=== PATIENT | female | born 1985 ===

== ENCOUNTER 2016-10-31 13:29 | Inpatient (IN) | payer MEDICAID ==
[2016-10-31 13:42] VITALS: BMI 28.8
--- NOTE | 2016-10-31 14:04 | ED PDOC ---
Arrival/HPI - General Time Seen by Provider: 10/31/16 13:45 Historian: Patient - History of Present Illness Narrative History of Present Illness (Text): The patient is a 31yo female, past medical history of depression, bipolar disorder, presents to the Emergency department today for evaluation of panic attacks. Patient states she has not visited a psychiatrist for over a year and has not taken any medications; reports she took Abilify last year and has a "horrible reaction" after which she was afraid to take the medications. She denies any suicidal or homicidal ideation and denies any auditory or visual hallucinations. She offers no other medical complaints. Past Medical History - Provider Review Nursing Documentation Reviewed: Yes - Travel History Have you recently traveled outside [place] w/in the past 3 mons?: No - Infectious Disease Hx of Infectious Diseases: None - Psychiatric Hx Bipolar Disorder: Yes Hx Depression: Yes Hx Post Traumatic Stress Disorder: Yes Hx Substance Use: No - Suicidal Assessment Suicidal Thoughts: No Plan: No Family/Social History - Physician Review Nursing Documentation Reviewed: Yes Family/Social History: No Known Family HX Smoking Status: Former Smoker Hx Alcohol Use: (former) Hx Substance Use: No Allergies/Home Meds Allergies/Adverse Reactions: Allergies No Known Allergies Allergy (Verified 10/31/16 13:41) Home Medications: Home Meds Medication Instructions Recorded Confirmed No Known Home Med 10/31/16 10/31/16 Review of Systems - Review of Systems Constitutional: Normal Eyes: Normal ENT: Normal Respiratory: Normal Cardiovascular: Normal. absent: Chest Pain Gastrointestinal: Normal Genitourinary Female: Normal Musculoskeletal: Normal Skin: Normal Neurological: Normal Endocrine: Normal Hemo/Lymphatic: Normal Psychiatric: Anxiety, Depression. absent: Suicidal Ideation Physical Exam - Physical Exam Narrative Physical Exam (Text): Constitutional:Tearful upon exam. Head: Normocephalic. Atraumatic. Eyes: PERRL. ENT: Moist mucous membranes. Neck: Supple. Cardiovascular: Regular rate. Chest: No tenderness. Respiratory: Clear to auscultation bilaterally. GI: Soft. Nontender. Nondistended. Back: No CVA tenderness. Musculoskeletal: No tenderness or swelling of extremities. Skin: No rash. Neurologic: Alert, no focal deficit. Vital Signs Reviewed: Yes Vital Signs Temp Pulse Resp BP Pulse Ox 10/31/16 13:29 97.7 F 68 18 108/60 98 Temperature: Afebrile Blood Pressure: Normal Pulse: Regular Respiratory Rate: Normal Appearance: Positive for: Non-Toxic, Comfortable Pain Distress: None Mental Status: Positive for: Alert and Oriented X 3 Medical Decision Making ED Course and Treatment: -- Labs -- Chest X-ray 10/31/16 16:01 Chest X-ray FINDINGS: LUNGS: No active pulmonary disease. PLEURA: No significant pleural effusion identified, no pneumothorax apparent. CARDIOVASCULAR: Normal. OSSEOUS STRUCTURES: No significant abnormalities. VISUALIZED UPPER ABDOMEN: Normal. OTHER FINDINGS: None. IMPRESSION: No active disease. - Lab Interpretations Lab Results: 10/31/16 14:06 10/31/16 14:06 Lab Results 10/31/16 14:06: Alcohol, Quantitative < 10 10/31/16 14:06: Salicylates < 1 L, Acetaminophen < 10.0 L 10/31/16 14:06: Urine Opiates Screen Negative, Urine Methadone Screen Negative, Ur Barbiturates Screen Negative, Ur Phencyclidine Scrn Negative, Ur Amphetamines Screen Negative, U Benzodiazepines Scrn Negative, U Oth Cocaine Metabols Negative, U Cannabinoids Screen Negative 10/31/16 14:06: Sodium 138, Potassium 4.0, Chloride 105, Carbon Dioxide 24, Anion Gap 13, BUN 10, Creatinine 0.5, Est GFR ( Amer) > 60, Est GFR (Non- Af Amer) > 60, Random Glucose 76, Calcium 9.1, Total Bilirubin 0.3, AST 26, ALT 35, Alkaline Phosphatase 74, Total Protein 7.2, Albumin 4.2, Globulin 3.0, Albumin/Globulin Ratio 1.4 10/31/16 14:06: Urine Color Yellow, Urine Appearance Turbid, Urine pH 6.0, Ur Specific [place] >= 1.030, Urine Protein Negative, Urine Glucose (UA) Negative, Urine Ketones 40 H, Urine Blood Large H, Urine Nitrate Negative, Urine Bilirubin Negative, Urine Urobilinogen 0.2, Ur Leukocyte Esterase Trace H, Urine RBC 2 - 5, Urine WBC 0 - 2, Ur Epithelial Cells 1 - 3, Urine Bacteria Trace, Urine HCG, Qual Negative 10/31/16 14:06: WBC 8.0, RBC 4.82, Hgb 13.5, Hct 39.8, MCV 82.6, MCH 28.0, MCHC 33.9, RDW 12.8, Plt Count 270, MPV 9.0, Gran % 71.4 H, Lymph % (Auto) 21.6 L, [place] % (Auto) 6.4 H, Eos % (Auto) 0.5 L, Baso % (Auto) 0.1, Gran # 5.73, Lymph # 1.7, [place] # 0.5, Eos # 0.0, Baso # 0.01 - RAD Interpretation Radiology Orders: 10/31/16 13:46 CHEST PORTABLE [RAD] Stat - EKG Interpretation EKG Interpretation (Text): NSR Rate: [address] ST/T wave changes Interpreted by ED Physician: Yes Type: 12 lead EKG - Medication Orders Current Medication Orders: Quetiapine Fumarate (Seroquel) 50 mg PO HS PRN; Protocol PRN Reason: Insomnia - Scribe Statement The provider has reviewed the documentation as recorded by the Stuart Rocha Provider Attestation: All medical record entries made by the Stuart were at my direction and personally dictated by me. I have reviewed the chart and agree that the record accurately reflects my personal performance of the history, physical exam, medical decision making, and the department course for this patient. I have also personally directed, reviewed, and agree with the discharge instructions and disposition. Disposition/Present on Arrival - Present on Arrival Any Indicators Present on Arrival: No History of DVT/PE: No History of Uncontrolled Diabetes: No Urinary Catheter: No History of Decub. Ulcer: No History Surgical Site Infection Following: None - Disposition Have Diagnosis and Disposition been Completed?: Yes Diagnosis: Bipolar disorder Disposition: HOSPITALIZED Disposition Time: 16:00 Patient Plan: Admission Condition: FAIR
[2016-10-31 14:11] LABS: BASO # 0.01 K/mm3 (0.0-2.0); BASO % 0.1 % (0.0-3.0); EOS % 0.5 % (1.5-5.0); GRAN # 5.73 (1.4-6.5); GRAN % 71.4 % (50.0-68.0); HEMATOCRIT 39.8 % (36.0-48.0); LYMPH # 1.7 (1.2-3.4); LYMPH % 21.6 % (22.0-35.0); MEAN CELL VOLUME 82.6 fl (80.0-105.0); MEAN CORPUSCULAR HGB CONC 33.9 g/dl (31.0-37.0); MONO # 0.5 (0.1-0.6); MONO % 6.4 % (1.0-6.0); RED CELL DISTRIBUTION WIDTH 12.8 % (11.5-14.5); URINE BILIRUBIN NEGATIVE (NEGATIVE); URINE BLOOD LARGE (NEGATIVE); URINE GLUCOSE (UA) NEGATIVE (NEGATIVE); URINE KETONE 40 mg/dL (NEGATIVE); URINE LEUKOCYTE ESTERASE TRACE Leu/uL (NEGATIVE); URINE PROTEIN NEGATIVE mg/dL (<30 mg/dL); URINE UROBILINOGEN 0.2 E.U./dL (<1 E.U./dL)
[2016-10-31 14:13] LABS: URINE APPEARANCE TURBID (CLEAR); URINE COLOR YELLOW (YELLOW)
[2016-10-31 14:18] LABS: URINE BACTERIA TRACE (NEG); URINE WBC 0 - 2 /hpf (0-6)
[2016-10-31 14:20] LABS: ALB/GLOB RATIO 1.4 (1.1-1.8); ALKALINE PHOSPHATASE 74 U/L (38-126); ALT/SGPT 35 U/L (7-56); AST/SGOT 26 U/L (14-36); BILIRUBIN,TOTAL 0.3 mg/dL (0.2-1.3); BLOOD UREA NITROGEN 10 mg/dL (7-21); CALCIUM 9.1 mg/dL (8.4-10.5); CARBON DIOXIDE 24 mmol/L (21-33); CHLORIDE 105 mmol/L (98-107); GFR AFRICAN-AMERICAN > 60; GLUCOSE,RANDOM 76 mg/dL (70-110); SODIUM 138 mmol/L (132-148); TOTAL PROTEIN 7.2 g/dL (5.8-8.3)
--- NOTE | 2016-10-31 15:59 | RAD ---
HISTORY: depression COMPARISON: No prior. FINDINGS: LUNGS: No active pulmonary disease. PLEURA: No significant pleural effusion identified, no pneumothorax apparent. CARDIOVASCULAR: Normal. OSSEOUS STRUCTURES: No significant abnormalities. VISUALIZED UPPER ABDOMEN: Normal. OTHER FINDINGS: None. IMPRESSION: No active disease.
[2016-10-31] MEDS ORDERED: Magnesium Hydroxide Susp 30 ml UD PO PRN (19:14)
[2016-10-31] MEDS ORDERED: Alum-Mag Hydrox-Simethicone Susp (30 mL) PO PRN (19:14)
--- NOTE | 2016-10-31 19:56 | PCM.BM ---
<Surjit Abdul - Last Filed: 10/31/16 19:53> Treatment Plan Problems - Problems identified on initial assessmt Suicidal Ideation Date Initiated: 10/31/16 Time Initiated: 19:53 Assessment reference: NA Status: Active Priority: 1 Comment: "Its easier to go than to live" Altered Thought Process Date Initiated: 10/31/16 Time Initiated: 19:54 Assessment reference: NA Status: Active Priority: 2 Comment: racing thoughts, pressured speech, circumstancial Depression Date Initiated: 10/31/16 Time Initiated: 19:54 Assessment reference: NA Status: Active Priority: 3 Altered Sleep Pattern Date Initiated: 10/31/16 Time Initiated: 19:54 Assessment reference: NA Status: Active Priority: 4 Treatment assets and liabiliti Patient Assests: cooperative, educated, insightful, ADL independent, physically healthy, negotiates basic needs, cognitively intact, good interpersonal skills Patient Liabilities: relationship conflicts - Milieu Protocol Maintain good personal hygiene: daily Encourage regular showers Maintain personal safety: every shift Educate patient to report safety concerns to staff, every shift Monitor environment for contraband/sharps Medication safety: Monitor for expected outcome, potential side effects: every shift, Assess barriers to learning: every shift, Assess readiness for medication education: every shift Discharge/Continuing Care - Education Needs Education Needs: Patient Medication, Patient Diagnosis/Disease Process, Patient Coping Skills, Patient Placement options, Patient Community resources, Patient Aftercare Safety Plan - Discharge Discharge Criteria: Tolerates medication w/o severe side effects, Free of Suicidal thoughts, Normal sleep pattern <Maggie Wilcox - Last Filed: 11/02/16 13:26> Family Contact Family involvement: Famliy/SO not involved Family contact: Patient agrees to contact <Lizett Brown - Last Filed: 11/03/16 07:23> - Diagnosis (1) Borderline personality disorder Status: Acute Interventions: 11/03/16 07:23 Psychoeducation Psychopharmacology/adjustment of medications as needed/ monitoring possible side effects Evaluate pt on daily basis Compliance with medications and follow up appointments Suicide and homicide risk assessment and prevention, coping strategies, safety plan Relapse prevention Family involvement As outpatient: Transference-focused psychotherapy/dialectical behavioral therapy /schema therapy Mindfulness skills (2) PTSD (post-traumatic stress disorder) Status: Acute Interventions: 11/03/16 07:23 Psychoeducation Psychopharmacology/adjustment of medications as needed/ monitoring possible side effects Evaluate pt on daily basis Compliance with medications and follow up appointments Suicide and homicide risk assessment and prevention, coping strategies, safety plan Reduction of symptoms Relaxation techniques and breathing exercises Improve functional status Family involvement As outpatient: cognitive behavioral therapy (3) Bipolar disorder Status: Acute Interventions: 11/03/16 07:24 Psychoeducation Psychopharmacology/adjustment of medications as needed/ monitoring possible side effects Monitor blood level of mood stabilizers Evaluate pt on daily basis Compliance with medications and follow up appointments Suicide and homicide risk assessment and prevention, coping strategies, safety plan Relapse prevention Reduction of symptoms Improve functional status Family involvement As outpatient: cognitive behavioral therapy <Jose Forbes - Last Filed: 11/03/16 10:05> Treatment assets and liabiliti Patient Assests: cooperative, educated, motivated, ADL independent, negotiates basic needs, good interpersonal skills Patient Liabilities: poor support system, relationship conflicts - Milieu Protocol Maintain good personal hygiene: daily Encourage regular showers, daily Remind patient to perform daily oral care, daily Assist patient to perform ADL's Maintain personal safety: daily Educate patient to report safety concerns to staff, daily Monitor environment for contraband/sharps Medication safety: Monitor for expected outcome, potential side effects: daily, Assess barriers to learning: daily, Assess readiness for medication education: daily Discharge/Continuing Care - Education Needs Education Needs: Patient Medication, Patient Diagnosis/Disease Process, Patient Anger Management skills, Patient Placement options, Patient Activities of Daily Living, Patient Health Practices/Safety, Patient Personal Hygiene/Grooming, Patient Aftercare Safety Plan
--- NOTE | 2016-10-31 22:32 | CARD ---
APPROVED REPORT EKG Measurement Heart [id number] <Conclusion> Normal sinus rhythm Normal ECG
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
--- NOTE | 2016-11-01 17:20 | RAD ---
PROCEDURE: Right Index finger radiographs. HISTORY: pain COMPARISON: None. TECHNIQUE: AP radiograph of the right hand, as well as spot oblique and lateral images of index finger were obtained. FINDINGS: RIGHT INDEX FINGER: Normal right index finger, without fracture or focal lesion. Remainder of the right hand (as seen on the AP view) grossly intact. Note, a ring obscures the proximal phalanx of the right ring finger and the patient is status post prior open reduction internal fixation of distal right radial fracture. An ununited ulnar styloid fracture is appreciated as well. JOINTS: Normal. SOFT TISSUES: Normal. OTHER FINDINGS: None. IMPRESSION: Normal right index finger radiographs.
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
--- NOTE | 2016-11-02 11:34 | PN ---
SUBJECTIVE: I saw the patient this morning in her room, sitting on her bed. She has multiple thoughts that was going on. She has a urinary tract infection. We started her on some Cipro, I changed it to nitrofurantoin this morning when I realized it was Gram-negative cocci. Also, she has had this right hand pain which is little bit better today and got an x-ray which was normal. I ordered blood test for her to look at more possible reasons for the right hand pain and I believe, she will refuse the labs this morning. PHYSICAL EXAMINATION: VITAL SIGNS: 97.4 temperature, 62 pulse, 107/69 blood pressure, 17 respiratory rate, 99% O2 saturation on room air. HEENT: Head is atraumatic and normocephalic. HEART: Regular rate. LUNGS: Clear to auscultation. ABDOMEN: Soft. EXTREMITIES: No edema and she can move the right hand better today. MEDICATIONS: She is on Maalox, Macrobid now; I stopped the Cipro; milk of magnesia; Motrin; Paxil; Seroquel and Tylenol. LABORATORY DATA: Has a gram-positive cocci in the urine. X-ray of the right hand was normal. I am not sure why she has the right hand pain. I ordered a sed rate and blood test and she refused them. PLAN: We will continue with treatment and care on the patient. Was also here for depression, anxiety. We will continue to watch until it gets better. . Geoff Billingsley DO MTDD
--- NOTE | 2016-11-03 10:15 | PN ---
DATE: 11/03/2016 SUBJECTIVE: I saw her resting comfortably this morning. She slept fairly well. She is having this right arm weakness and grasp especially with the right hand. I am going to call a neurology to get their opinion. She is on Klonopin, Maalox, Macrobid, milk of magnesia, Motrin, Paxil, Seroquel and Tylenol. She has a history of depression, anxiety, right hand pain, weakness, she had it for a while and the urinary tract infection. PHYSICAL EXAMINATION VITAL SIGNS: 97.6 temp, 64 pulse, 96/52 blood pressure, 18 respiratory rate and 99% O2 on room air. HEENT: Head is atraumatic and normocephalic. HEART: Regular rate. LUNGS: Clear to auscultation. ABDOMEN: Soft. EXTREMITIES: No edema. LABORATORY DATA: Labs on the 10/31/2016, she refused all the other labs that I ordered. ASSESSMENT AND PLAN: She has been seen psychiatry. She has a right hand weakness and I call neurology in. Hopefully, she will improve. Hopefully, we will find what was going on by neurology. She also has bipolar borderline personality disorder, post-traumatic stress disorder, panic attacks, generalized anxiety disorder. Geoff Billingsley DO
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
--- NOTE | 2016-11-03 15:13 | CT ---
PROCEDURE: CT HEAD WITHOUT CONTRAST. HISTORY: right hand weakness/pain COMPARISON: None available. TECHNIQUE: Axial computed tomography images were obtained through the head/brain without intravenous contrast. Radiation dose: Total exam DLP = 725.84 mGy-cm. This CT exam was performed using one or more of the following dose reduction techniques: Automated exposure control, adjustment of the mA and/or kV according to patient size, and/or use of iterative reconstruction technique. FINDINGS: HEMORRHAGE: No intracranial hemorrhage. BRAIN: Foster-white matter differentiation is preserved. There is no mass, mass effect or abnormal extra-axial fluid collection. There is no territorial infarction. VENTRICLES: The ventricles are normal in size, shape and configuration. There is a cavum septum pellucidum. CALVARIUM: The skull base and calvarium are normal. PARANASAL SINUSES: Predominantly clear. MASTOID AIR CELLS: Predominantly clear. OTHER FINDINGS: None. IMPRESSION: No acute intracranial abnormality. If there is a persistent focal neurologic deficit and an ongoing clinical concern for acute infarction, an MRI of the brain without intravenous contrast would be a more sensitive modality for evaluation of hyperacute/acute ischemic infarction.
--- NOTE | 2016-11-03 18:18 | CP.PCM.CON ---
<Jorgito Mcgee - Last Filed: 11/03/16 19:09> History of Present Illness - History of Present Illness History of Present Illness: Neurology Consult Note for Dr. Brito Service Consulted for: R arm weakness This is a 31 yo F with PMH of Depression, Bipolar disorder, Panic attack, PTSD, and prior R wrist fracture who presented to [facility] for admission to the psych unit due to panic attacks. Neurology was consulted by Medicine consult due to right arm weakness. 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 Denies sensation of stiffness, worsening or improving with activity, or numbness/paresthesias in the digits or elsewhere in the R arm. Denies any personal or family hx of carpal tunnel, and denies any personal hx of thyroid disease. Not a diabetic. 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 Denies any tremors or spasms in the hand. All other ROS in 12-point system review negative. She previously received PT for the wrist fracture, which resolved without any further complications; finger pain onset does not coincide with either wrist fracture or with PT for wrist. PMH: as above PSH: denies FHx: Thyroid disease SHx: Admits to remote former tobacco use (tried cigarettes intermittently for 2- 3 months, then quit), admits social EtOH use, denies illicits/IVDA, currently unemployed x1 year PMD: None Had a Psychiatrist as outpatient, but reports not having been to see in > 1 year Review of Systems - Review of Systems All systems: reviewed and no additional remarkable complaints except (as per HPI ) Past Patient History - Infectious Disease Hx of Infectious Diseases: None - Past Social History Smoking Status: Former Smoker - CARDIAC Hx Cardiac Disorders: No Hx Hypertension: No - PULMONARY Hx Tuberculosis: No - NEUROLOGICAL HX Cerebrovascular Accident: No Hx Seizures: No - HEMATOLOGICAL/ONCOLOGICAL Hx Cancer: No Hx Human Immunodeficiency Virus (HIV): No - GENITOURINARY/GYNECOLOGICAL Hx Sexually Transmitted Disorders: No - PSYCHIATRIC Hx Bipolar Disorder: Yes Hx Depression: Yes Hx Post Traumatic Stress Disorder: Yes Hx Substance Use: No Meds Allergies/Adverse Reactions: Allergies Allergy/AdvReac Type Severity Reaction Status Date / Time No Known Allergies Allergy Verified 10/31/16 13:41 - Medications Medications: Current Medications Acetaminophen (Tylenol 325mg Tab) 650 mg PO Q4 PRN PRN Reason: Pain, Mild (1-3) Al Hydrox/Mg Hydrox/Simethicone (Maalox Plus 30 Ml) 30 ml PO DAILY PRN PRN Reason: Upset Stomach Clonazepam (Klonopin) 0.5 mg PO BID [facility] PRN Reason: Protocol Last Admin: 11/03/16 16:45 Dose: 0.5 mg Ibuprofen (Motrin Tab) 600 mg PO Q6H PRN PRN Reason: Pain, moderate (4-7) Magnesium Hydroxide (Milk Of Magnesia) 30 ml PO DAILY PRN PRN Reason: Constipation Nitrofurantoin Macrocrystals (Macrobid) 100 mg PO Q12 [facility] Last Admin: 11/03/16 06:34 Dose: 100 mg Paroxetine HCl (Paxil) 20 mg PO [facility] Last Admin: 11/02/16 21:03 Dose: 20 mg Quetiapine Fumarate (Seroquel) 50 mg PO [facility] PRN Reason: Protocol Last Admin: 11/02/16 21:03 Dose: 50 mg Physical Exam - Constitutional Appears: Well, Non-toxic, No Acute Distress - Head Exam Head Exam: ATRAUMATIC, NORMAL INSPECTION, NORMOCEPHALIC - Eye Exam Eye Exam: EOMI, Normal appearance. absent: Conjunctival injection, Scleral icterus Pupil Exam: absent: Irregular, Unequal - ENT Exam ENT Exam: Mucous Membranes Moist - Neck Exam Neck exam: Positive for: Full Rom - Respiratory Exam Respiratory Exam: Clear to Auscultation Bilateral, NORMAL BREATHING PATTERN. absent: Accessory Muscle Use, Chest Wall Tenderness, Decreased Breath Sounds, Rales, Rhonchi, Wheezes - Cardiovascular Exam Cardiovascular Exam: REGULAR RHYTHM, RRR, +S1, +S2. absent: Bradycardia, Tachycardia, Irregular Rhythm, +S4 - GI/Abdominal Exam GI & Abdominal Exam: Normal Bowel Sounds, Soft. absent: Firm, Rigid, Tenderness - Extremities Exam Extremities exam: Positive for: normal inspection. Negative for: calf tenderness, pedal edema, tenderness Additional comments: R-hand Exam No tenderness to palpation at any site, including all PIP and DIP joints no palpable contracture Fingers fully extend without stiffness/pain/difficulty No fluctuance or swelling of discrete joints, no erythema Sensation throughout R hand intact and equal as compared with L hand Full flexion of 1st, 2nd, and 5th digits without any pain/stiffness/difficultly Pain with flexion of 3rd and 4th digits at PIP joint, but passive ROM completely intact, no abnormal physiologic barriers or resistance palpated with passive flexion - Neurological Exam Neurological exam: Alert, CN II-XII Intact, Normal Gait, Oriented x3 - Psychiatric Exam Psychiatric exam: Normal Affect, Normal Mood - Skin Skin Exam: Dry, Intact, Normal Color, Warm Results - Vital Signs Recent Vital Signs: Last Vital Signs Temp 7.6 F L 11/03/16 06:46 Pulse 54 L 11/03/16 06:46 Resp 18 11/03/16 06:46 BP 96/52 L 11/03/16 06:46 Pulse Ox 99 11/03/16 06:46 - Labs Result Diagrams: 10/31/16 14:06 10/31/16 14:06 Assessment & Plan - Assessment and Plan (Free Text) Assessment: This is a 31 yo F with PMH of Depression, Bipolar disorder, Panic attack, PTSD, and prior R wrist fracture who presented to [facility] for admission to the psych unit due to panic attacks. Neurology was consulted by Medicine consult due to right arm weakness. Patient does not appear to be experiencing weakness at this time, instead describes joint pain, specifically with flexion of the 3rd and 4th digits of R hand. Neurologically appears fully intact; Head CT was ordered and was negative for acute process. Recommend Mobic for joint pain and Hand PT, follow up with Neurology as outpatient for EMG. Neurologically stable, will follow peripherally. Plan: 1) Mobic 7.5mg PO q12 PRN for pain 2) PT 3) Outpt followup with Neuro for EMG Patient reviewed and discussed with attending, Dr. Brito. <Rambo Brito - Last Filed: 11/03/16 22:39> Meds - Medications Medications: Current Medications Acetaminophen (Tylenol 325mg Tab) 650 mg PO Q4 PRN PRN Reason: Pain, Mild (1-3) Al Hydrox/Mg Hydrox/Simethicone (Maalox Plus 30 Ml) 30 ml PO DAILY PRN PRN Reason: Upset Stomach Clonazepam (Klonopin) 0.5 mg PO BID [facility] PRN Reason: Protocol Last Admin: 11/03/16 16:45 Dose: 0.5 mg Magnesium Hydroxide (Milk Of Magnesia) 30 ml PO DAILY PRN PRN Reason: Constipation Meloxicam (Mobic) 7.5 mg PO Q12H PRN PRN Reason: R hand/finger pain Nitrofurantoin Macrocrystals (Macrobid) 100 mg PO Q12 [facility] Last Admin: 11/03/16 18:00 Dose: 100 mg Paroxetine HCl (Paxil) 20 mg PO [facility] Last Admin: 11/03/16 22:19 Dose: 20 mg Quetiapine Fumarate (Seroquel) 50 mg PO [facility] PRN Reason: Protocol Last Admin: 11/03/16 22:19 Dose: 50 mg Results - Vital Signs Recent Vital Signs: Last Vital Signs Temp 7.6 F L 11/03/16 06:46 Pulse 60 11/03/16 16:00 Resp 18 11/03/16 06:46 BP 102/59 L 11/03/16 16:00 Pulse Ox 99 11/03/16 06:46 - Labs Result Diagrams: 10/31/16 14:06 10/31/16 14:06 Attending/Attestation - Attestation I have personally seen and examined this patient.: Yes I have fully participated in the care of the patient.: Yes I have reviewed all pertinent clinical information: Yes
--- NOTE | 2016-11-04 08:38 | PCM.PYCHPN ---
Psychiatric Progress Note - Psychiatric Progress Note Patient seen today, length of contact: 25 min Patient Chief Complaint: okay Problems Identified/Issues Discussed: I reviewed assessment and recent notes. I met with patient at bedside. Patient is fairly groomed and oriented x3. Calm and cooperative during my visit. Reports that she is getting better and feels okay this morning. Her affect is fairly reactive. Responses are relevant to questioning. Presently patient denies having any new discomfort or pain and has been tolerating medications on the unit. Reports that she slept well. Nursing notes indicates that patient has been in good control and visible on the unit. She is brighter and more interactive. There were no behavioral issues over the weekend. Diagnostic Results: r/o Bipolar II r/o borderline personality r/o PTSD r/o panic attacks r/o LOS Medication Change: No ( ) Medical Record Reviewed: Yes Mental Status Examination - Cognitive Function Orientation: Person, Place, Situation Memory: Intact Attention: WNL - Mood Mood: Depressed ("okay") - Affect Affect: Other (fairly reactive) - Speech Speech: Appropriate - Formal Thought Process Formal Thought Process: No Impairment - Suicidal Ideation Suicidal Ideation: No - Homicidal Ideation Homicidal Ideation: No Goal/Treatment Plan - Goal/Treatment Plan Need for Continued Stay: Remain at risks for inpatient hospitalization, Severe depression anxiety, Discharge may exacerbated symptoms, Severe functional impairment Progress Toward Problem(s) and Goals/Treatment Plan: * c/w current tx and plan * No new weekend labs thus far * Vitals reviewed and noted below: Selected Entries 11/02/16 11/02/16 11/03/16 08:05 16:00 06:46 Temperature 97.4 F L Pulse Rate 62 67 54 L Respiratory 17 18 Rate Blood Pressure 107/69 103/61 96/52 L O2 Sat by Pulse 99 Oximetry 11/03/16 16:00 Temperature Pulse Rate 60 Respiratory Rate Blood Pressure 102/59 L O2 Sat by Pulse Oximetry Estimated Date of D/C: 11/07/16
[2016-11-05 06:53] VITALS: O2SAT 97
--- NOTE | 2016-11-05 08:50 | PCM.PYCHPN ---
Psychiatric Progress Note - Psychiatric Progress Note Patient seen today, length of contact: 25 min Patient Chief Complaint: okay Problems Identified/Issues Discussed: I reviewed recent notes and met with patient at bedside. Patient remains groomed and well-oriented. Calm and cooperative during my visit. Reports that she is getting better and feels okay this morning. She is hopeful and states "I was never without hope". Her affect remains fairly reactive. Responses are coherent and relevant to questioning. Presently patient denies having any new discomfort or pain and has been tolerating medications on the unit. Reports that she slept well. Nursing notes indicates that patient has been in good control and visible on the unit. She is brighter and more interactive. Going to groups and appears to be improving. There were no behavioral issues over the weekend. Diagnostic Results: r/o Bipolar II r/o borderline personality r/o PTSD r/o panic attacks r/o LOS Medication Change: No ( ) Medical Record Reviewed: Yes Mental Status Examination - Cognitive Function Orientation: Person, Place, Situation Memory: Intact Attention: WNL Concentration: WNL Association: WNL Fund of Knowledge: WN - Mood Mood: Depressed ("I was never without hope") - Affect Affect: Other (fairly reactive) - Speech Speech: Appropriate - Formal Thought Process Formal Thought Process: No Impairment - Suicidal Ideation Suicidal Ideation: No - Homicidal Ideation Homicidal Ideation: No Goal/Treatment Plan - Goal/Treatment Plan Need for Continued Stay: Remain at risks for inpatient hospitalization, Severe depression anxiety, Discharge may exacerbated symptoms, Severe functional impairment Progress Toward Problem(s) and Goals/Treatment Plan: * c/w current tx and plan * No new weekend labs * Vitals reviewed and noted below: Selected Entries 11/04/16 11/04/16 07:06 16:25 Temperature 97.7 F Pulse Rate 61 60 Respiratory 20 Rate Blood Pressure 106/63 104/65 Estimated Date of D/C: 11/07/16
--- NOTE | 2016-11-05 11:38 | PN ---
DATE: SUBJECTIVE: I saw her in the psychiatric floor, eating her breakfast, and doing well. She is currently on Klonopin, Maalox, and Macrobid for urinary tract infection. Milk of magnesia and Mobic now for the right hand stiffness. She has not tried yet Paxil, Seroquel, and Tylenol. For the most part, she is feeling better, less mental thoughts and changes in thoughts that is clear when she tells me. PHYSICAL EXAMINATION: VITAL SIGNS: She is on 97.6 temperature, 65 pulse, 94/69 blood pressure, 18 respiratory rate, and 97% O2 sat on room air. HEENT: Head is atraumatic and normocephalic. HEART: Regular rate. LUNGS: Clear to auscultation. ABDOMEN: Soft. EXTREMITIES: No edema. On the right hand, she shows me it is being stiff. ASSESSMENT AND PLAN: I asked her to try the Mobic, but the neurologist placed her on and there was no neurological reasons for her having the hand issue. On the , she had blood test and they are all very good. Urinary tract infection, she is on medicine for that. She is being seen by neurology and psychiatry. She has multiple issues. She has depression, anxiety, right hand pain, and stiffness. Urinary tract infection, posttraumatic stress disorder, bipolar, and borderline personality disorder. I do think she is starting to improve. We will continue with aggressive treatment and care as per psychiatry. Hopefully, the Mobic will help her. Geoff Billingsley DO
--- NOTE | 2016-11-06 08:46 | PN ---
DATE: 11/04/2016 SUBJECTIVE: I saw her on the psychiatric floor. She is still having the right hand numbness and pain. Dr. Brito the neurologist had seen her and felt she was neurologically stable. Ordered some Mobic and also outpatient EMG if it persists. We will need to do that in the hospital. Possibility of physical therapy, otherwise mentally she tells me she is improving with the medications. She is eating well. PHYSICAL EXAMINATION GENERAL: Text. VITAL SIGNS: 97.7 temperature, 61 pulse, 106/63 blood pressure, 20 respiratory rate, and 99% on room air. HEENT: Head is atraumatic and normocephalic. HEART: Regular rate. LUNGS: Clear to auscultation. ABDOMEN: Soft. EXTREMITIES: No edema and she can move her right hand, but has some difficulty at times. MEDICATIONS: She on Klonopin, Maalox, Macrobid for urinary tract infection, milk of magnesia, Mobic now for the right hand, Paxil, Seroquel, and Tylenol. LABORATORY DATA: Last labs on 10/31/2016, she did well. ASSESSMENT AND PLAN: She has been followed by psychiatry and adjusting her medications as needed. She is here for depression, anxiety, right hand pain, bipolar, PTSD, borderline personality disorder, UTI, and generalized anxiety disorder. Seen here for treatment and care. I encouraged to take the medication and participate in groups. Geoff Billingsley DO
[2016-11-06] MEDS: Meloxicam 7.5 MG TAB PO PRN ×2 (09:27→23:06)
--- NOTE | 2016-11-06 10:33 | PN ---
SUBJECTIVE: I saw her resting comfortably this morning. She slept very well last night. Mentally, she tells me she is improving. The right hand is still stiff at times. She has not taken the medicine yet that the neurologist had ordered for her, which was Mobic. She said she will try it this morning. She is eating. The thoughts are less bothersome. She feels better psychologically. She is hoping to go home. PHYSICAL EXAMINATION: GENERAL: She is all covered up and bundled in bed. She is alert. She is talking. She sounds better. VITAL SIGNS: She has a 98.3 temp, 62 pulse, 100/66 blood pressure, 18 respiratory rate, and 97% of O2 sat on room air. MEDICATIONS: She is on Klonopin, Maalox, Macrobid for UTI, milk of magnesia, Mobic for the right hand stiffness, Paxil, Seroquel, and Tylenol. LABORATORY DATA: Last labs on the and she did well. ASSESSMENT AND PLAN: She was seen by the neurologist who had signed off and said that it is not neurological and the CAT scan was good of the brain. As per psychiatry, continue with treatment and care. She has severe depression and anxiety, bipolar, posttraumatic stress disorder, borderline personality disorder, urinary tract infection, right hand possibly arthritis, gastroesophageal reflux disease as per psychiatry. We will follow on this young lady. Geoff Billingsley DO
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
[2016-11-07 11:15] VITALS: BP 90/60; PULSE 60; RESP 16; TEMP 97.8
--- NOTE | 2016-11-07 12:02 | PN ---
DATE: SUBJECTIVE: I saw her on the psychiatric floor. She is doing well. She is eating well. She is improving. She is feeling better mentally. No thoughts that are bad anymore. She is on Klonopin, Maalox, Macrobid for UTI, milk of magnesia, Mobic for right hand stiffness, Paxil, Seroquel and Tylenol. PHYSICAL EXAMINATION VITAL SIGNS: 98.3 temperature, 62 pulse, 100/66 blood pressure, 18 respiratory rate, 97% O2 sat on room air. HEENT: Head is atraumatic and normocephalic. Throat is moist. NECK: Supple. HEART: Regular rate. LUNGS: Clear to auscultation. ABDOMEN: Soft. EXTREMITIES: No edema in the right hand. She can move fairly well. ASSESSMENT AND PLAN: She had a blood test done on 10/31/2016, which were good. I do think she is improving mentally. She is here for depression, anxiety, bipolar, posttraumatic stress disorder, urinary tract infection, right hand stiffness. I encourage her to continue with the medications. She tells me she is going home today. We will see what psychiatry decides, but overall, I think she is improving while she has been here and I asked her to continue to follow up on the outpatient if she is discharged today. Geoff Billingsley DO
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
== END 2016-11-07 16:48 | disposition home or self-care (01) | DRG 430 ==
LOC: ED 13:29 → ERH 16:34 → PSYC 18:03
PROVIDERS: ADMIT Psychiatry & Neurology Psychiatry; ATTEND Psychiatry & Neurology Psychiatry
DX: F31.9 Bipolar disorder, unspecified (principal); N39.0 Urinary tract infection, site not specified; F60.3 Borderline personality disorder; F43.10 Post-traumatic stress disorder, unspecified; F41.0 Panic disorder [episodic paroxysmal anxiety]; F41.1 Generalized anxiety disorder; K21.9 Gastro-esophageal reflux disease without esophagitis; M79.641 Pain in right hand; Z87.891 Personal history of nicotine dependence